=== PATIENT | female | born 1985 | race Caucasian/White ===

== ENCOUNTER 2016-12-18 20:11 | Emergency (ER) | payer MEDICAID ==
[~2016-12-18] VITALS: Ht 172.7 cm; Wt 68.0 kg
[2016-12-18 20:31] VITALS: BP 118/74
[2016-12-18] MEDS ORDERED: TYLENOL EXTRA500 MG ORAL (20:57)
[2016-12-18] MEDS ORDERED: CYCLOBENZAPRINE10 MG ORAL (20:57)
[2016-12-18 21:07] VITALS: BP 118/74
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
== END 2016-12-18 21:10 | disposition home or self-care (01) ==
LOC: EMR 20:49
DX: S16.1XXA Strain of muscle, fascia and tendon at neck level, initial encounter (principal); V43.52XA Car driver injured in collision with other type car in traffic accident, initial encounter; Y92.410 Unspecified street and highway as the place of occurrence of the external cause
CPT/HCPCS: 99284

== ENCOUNTER 2017-02-05 16:23 | Emergency (ER) | payer MEDICAID, OTHER ==
[~2017-02-05] VITALS: Ht 172.7 cm; Wt 72.6 kg
[~2017-02-05 16:23] MED LIST: CYCLOBENZAPRINE10 MG ORAL; TYLENOL EXTRA500 MG ORAL
[2017-02-05 16:48] VITALS: BP 112/77
[2017-02-05] MEDS ORDERED: TdaP Vaccine 0.5ml Syr IM ONE (17:00)
--- NOTE | 2017-02-05 17:09 | Emergency Room Report ---
History of Present Illness General Chief Complaint: Laceration Source: Patient Present Illness HPI 31 y/o female c/o cuts to right index and middle finger x 2 hours ago. 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 States its been over 10 years since she received Td vaccination and requesting immunization. Has no other complaints. States cut is very superficial and doesn't think it needs stitches. States she cleaned it at home with soap and water. Patient denies any numbness, tingling, pressure, paralysis , cyanosis, bruising, loss of sensation, or loss of range of motion. Allergies: Coded Allergies: No Known Allergies (Unverified , 12/18/16) Patient History Past Medical History: see triage record Past Surgical History: none Pertinent Family History: none Last Menstrual Period: last week Now: No Immunizations: other - Need Tdap Reviewed Nursing Documentation: PMH: Agreed, PSxH: Agreed Nursing Documentation-PMH Past Medical History: No History, Except For Physical Exam Vital Signs Date Time Temp Pulse Resp B/P Pulse Ox O2 Delivery O2 Flow Rate FiO2 02/05/17 16:37 98.1 69 18 108/73 98 Room Air Sp02 EP Interpretation: reviewed, normal General Appearance: no apparent distress, alert, GCS 15, non-toxic Head: normocephalic, atraumatic Eyes: bilateral eye normal inspection ENT: normal ENT inspection Neck: normal inspection Respiratory: no respiratory distress, speaking full sentences Cardiovascular #1: normal peripheral pulses, normal capillary refill Musculoskeletal: back normal, digits/nails normal, gait/station normal, normal range of motion, non-tender Neurologic: alert, oriented x3, responsive, motor strength/tone normal, sensory intact, speech normal Psychiatric: judgement/insight normal, memory normal, mood/affect normal, no suicidal/homicidal ideation Skin: normal color, no rash, warm/dry, well hydrated, laceration - abrasions to right index and middle finger Medical Decision Making PA Attestation Dr. Diez my supervising physician with whom patient management has been discussed with. Diagnostic Impression: Primary Impression: Abrasion of finger, right Qualified Codes: S60.419A - Abrasion of unspecified finger, initial encounter Additional Impression: Encounter for immunization ER Course Pt. presents to the ED c/o laceration on hand Ddx considered but are not limited to laceration, abrasion, contusion, fracture , tendon rupture, foreign body Vital signs: are WNL, pt. is afebrile H&PE are most consistent with abrasion ORDERS: none required at this time, the diagnosis is clinical ED INTERVENTIONS: TDap DISCHARGE: At this time pt. is stable for d/c to home. Will provide printed patient care instructions, and any necessary prescriptions. Care plan and follow up instructions have been discussed with the patient prior to discharge. Last Vital Signs Date Time Temp Pulse Resp B/P Pulse Ox O2 Delivery O2 Flow Rate FiO2 02/05/17 16:48 97.9 64 17 112/77 99 Room Air Status: unchanged Disposition: HOME, SELF-CARE Condition: Stable Patient Instructions: Nonsutured Laceration Care Additional Instructions: Keep wound clean and dry. Avoid sun exposure to minimize scarring. Patient advised that they can take a shower or bath, but be sure to pat the area dry with a towel afterward. Patient should come back sooner if they experience any red areas that get bigger, more swollen, have pus draining from wound, or if the site becomes more painful. HAKEEM WONG Feb 05, 2017 17:09
[2017-02-05 17:27] VITALS: BP 112/77
== END 2017-02-05 17:28 | disposition home or self-care (01) ==
LOC: EMR 16:58
DX: S60.410A Abrasion of right index finger, initial encounter (principal); S60.412A Abrasion of right middle finger, initial encounter; Z23 Encounter for immunization; W26.9XXA Contact with unspecified sharp object(s), initial encounter; Y93.9 Activity, unspecified; Y92.9 Unspecified place or not applicable
CPT/HCPCS: 90471; 90715; 96372; 99283